=== PATIENT | female | born 1950 | race Caucasian/White ===

== ENCOUNTER 2016-04-22 21:24 | Observation (INO) | payer BC, MEDICARE ==
--- NOTE | ~2016-04-22 | HP ---
History And Physical [place] [id number] [facility] [place]. [address] NAME: CRISTOBAL PICKENS : 46 STATUS : ADM Ryan PAT#: [id number] AGE: 65 ADM/REG DATE : 04/22/16 MR#: [id number] REPORT SERV DATE: 04/23/16 DICTATED BY: OLE OSORIO DATE: 04/23/16 REPORT STATUS : Draft TRANSCRIBED BY: MODL DATE: 04/23/16 DATE OF ADMISSION: 04/22/2016 PRIMARY CARE PROVIDER: Zi Stewart M.D. INSPECTOR PUBLICATIONS: Jose Juan Spence M.D. LAST OFFICE VISIT: 09/14/2015 CHIEF COMPLAINT: Hypertension with headache. HISTORY OF PRESENT ILLNESS: This is a 65-year-old white female with a history of mild/nonobstructive coronary artery disease per catheterization in July 2014 and restrictive perimembranous VSD with aneurysmal formation per [facility] in August 2015. She also has history of obstructive sleep apnea for which she is on CPAP and suboptimally controlled hypertension. She has a history of atypical chest pain while lying flat that has been attributed to hiatal hernia. She does also have GERD. She tells me that she has been suffering from upper respiratory infection that started with sinusitis and nasal allergies and congestion. She reports she also had nausea that she often gets associated with these allergic symptoms. This started 1-1/2 weeks ago and she was not sure if it was allergies or an infection as she works in a school system. Her symptoms persisted and on , she went to her primary care provider. She reports she was given a steroid shot and clarithromycin 1 tablet p.o. twice per day. After this, she became jittery, dizzy, and her blood pressure became quite high after these medications. Please note, she also started taking an [id number]-[id number] decongestant, Farida-[place]. She reports sinus headache and worsening of chronic mild nausea as well after these medications. She called her primary care provider on Sunday who stopped the antibiotics. Again, she notes that she is quite concerned because her systolic blood pressure had increased up to 180s and she reports normally her blood pressure runs systolically 130s to 150s. She presented to the emergency room last night as she continued to have a high blood pressure, had a headache and felt jittery and nauseated. In the ER, when she was lying flat, she commented to staff that she had 3/10 chest pain. They decided to admit her to the Chest Pain Observation Unit. She reports adamantly that she did not come to the ER for chest pain and that she often has chest pain when she is lying flat and she says she has been told it is due to her history of hiatal hernia. I do see in the last office visit note that they comment about the atypical chest pain when lying down at night. I also see a note from [facility] in [facility] that does discuss her history of 4 cm hiatal hernia. She reports overnight that her nausea has actually resolved. She reports her headache has now resolved as well. She does still feel jittery and a little bit tired. She says she has not slept, however. She reports that she has not been compliant recently with CPAP given her nasal congestion. The patient tells me that she wishes to go home today; however, her daughter reports that she would encourage her mother to stay for stress test on Sunday if we felt it was necessary. The patient denies any chest pain other than chest pain yesterday evening while lying flat and otherwise sometimes having chest pain lying flat that she attributes to hiatal hernia. She denies any dyspnea on exertion, syncope or near-syncope. She denies any chest pain with History And Physical [address] [place]. [address] NAME: CRISTOBAL PICKENS : 46 STATUS : ADM Ryan PAT#: [id number] AGE: 65 ADM/REG DATE : 04/22/16 MR#: [id number] REPORT SERV DATE: 04/23/16 DICTATED BY: OLE OSORIO DATE: 04/23/16 REPORT STATUS : Draft TRANSCRIBED BY: MODEne DATE: 04/23/16 exertion. She denies any orthopnea or lower extremity edema. PAST MEDICAL HISTORY: 1. Atypical chest pain while lying down at night. 2. Mild coronary artery disease without severe stenosis per cath arteriogram on 07/08/2014 with ejection fraction 65%. Right dominant. LAD 35% proximally; circumflex 10% proximally; RCA 25% proximal and 10% distal. 3. Hypertension with suboptimal control. 4. Category 1 bilateral carotid artery disease per ultrasound of 01/21/2015. 5. Small/moderate perimembranous restrictive VSD with aneurysmal formation, no thrombus; TV restricted mobility, right ventricle upper limits of normal and pulmonary outflow tract with increased velocities, EF 55% to 60%. This is per [facility] 08/06/[address] Jenkins. 6. PACs on Holter. 7. Premature SVT complexes and first-degree AV block noted on EKG 07/08/2014. 8. Mild obstructive sleep apnea, normally compliant with CPAP but not fully compliant recently with nasal congestion. 9. Fibromyalgia. 10.Fatigue. 11.Chronic hormone replacement therapy. 12.No evidence of renal artery stenosis by ultrasound 12/25/2013. 13.Chronic headaches. 14.GERD. 15.Nasal allergies. 16.4 cm hiatal hernia. 17.Gastric erosion and hiatal hernia noted on EGD in August 2011 which was done after melena/GI bleed with Dr. Pascual. PAST SURGICAL HISTORY: 1. EGD with dilation. 2. Abdominal BSO and A and P repair. 3. Bladder sling. SOCIAL HISTORY: She denies any tobacco or alcohol use. She consumes 2 cups of caffeine daily. She works in school cafeteria. FAMILY HISTORY: Positive for brother with CABG x2, first under 60 years old; father, MO, age 64 (); sister, AVR; sister, bicuspid aortic valve and sister with CVA at the age of 50; sister, CAD and MO at the age of 52. REVIEW OF SYSTEMS: Last cath arteriogram, 07/08/2014, with mild nonobstructive CAD as previously noted. Last stress test, 10/24/2013, which was low risk with no ischemia with EF greater than 60%. Last transthoracic echo, 10/24/2013, EF 55%; aortic sclerosis with restrictive perimembranous VSD. Last transesophageal echocardiogram, 08/06/2015, please see past medical history. As above per HPI, all other systems reviewed and negative. History And Physical [address] [place] [address] NAME: CRISTOBAL PICKENS : 46 STATUS : ADM Ryan PAT#: [id number] AGE: 65 ADM/REG DATE : 04/22/16 MR#: [id number] REPORT SERV DATE: 04/23/16 DICTATED BY: OLE OSORIO DATE: 04/23/16 REPORT STATUS : Draft TRANSCRIBED BY: ESTELLA DATE: 04/23/16 ALLERGIES: 1. OXYCODONE, REACTION NERVOUS. 2. ASPIRIN, REACTION NERVOUS, THIS IS IN CONJUNCTION PERCODAN. HOME MEDICATIONS: List reviewed and is as follows: 1. Elavil 25 mg p.o. every day at bedtime. 2. Norvasc 2.5 mg p.o. at bedtime. 3. Nuvigil 150 mg p.o. every morning. 4. Ziac 5/6.25 mg tablet p.o. daily. 5. Hydrocodone/acetaminophen 10/300 mg p.o. q.4h p.r.n. 6. Lisinopril 40 mg p.o. at bedtime. 7. Nitroglycerin 0.4 mg sublingual q.5h minutes x3 p.r.n. 8. Omeprazole 40 mg p.o. daily. 9. Pravastatin 40 mg p.o. daily. 10.Ambien 10 mg p.o. every day at bedtime p.r.n. sleep. 11.Fluticasone 2 sprays each nostril daily. PHYSICAL EXAMINATION: VITAL SIGNS: Oxygen saturation 96% on room air; weight 72.12 kg; temperature 97.6; pulse 83; respiratory rate 16; blood pressure currently 165/77, highest blood pressure 186/79. GENERAL: Well developed, well nourished. In no apparent distress. HEENT: Head normocephalic. No xanthelasma. Sclera clear, anicteric. Moist mucous membranes without pallor. No lymphadenopathy. No deficits noted. NECK: Trachea midline. Supple. No thyromegaly, JVD, or bruits. RESPIRATORY: Unlabored respirations. Breath sounds with crackles noted to the bilateral bases, otherwise no wheezes or rhonchi, and upper are clear. CARDIOVASCULAR: Regular rate and rhythm. No murmur, rub, or gallop appreciated. No chest wall tenderness to palpation. ABDOMEN: Soft, nontender, and nondistended. Active bowel sounds auscultated x4 quadrants. No organomegaly and no masses. No aortic bruit. EXTREMITIES: DP/PT and radial pulses 2+ bilaterally. No clubbing, cyanosis, or edema. SKIN: Warm, dry, intact. No rash. Normal turgor. MUSCULOSKELETAL: Moves all extremities in bed without difficulty. NEURO/PSYCH: Alert and oriented x3 with no acute distress. Affect appropriate to current situation. LABORATORY DATA: BMP: Sodium 142, potassium 4.1, creatinine 0.85, glucose 104, calcium 9.3, magnesium 1.9. CBC: White blood cell count 8.3, hemoglobin 13.2, hematocrit 39, platelets 295. Troponin less than 0.[address] without contrast reveals no acute intracranial abnormality. Chest x-ray taken, this is a 2-view chest x-ray; it has not been formally read yet. My read is no acute processes. EKG is personally interpreted, normal sinus rhythm with mild changes that could be consistent with LVH; anteroseptal/anterolateral Q-waves are noted. There is no ischemia. Telemetry: Normal sinus rhythm with no events. ASSESSMENT AND PLAN: 1. Poorly controlled hypertension. This is in the setting of decongestants and IV steroids administered on for upper respiratory infection/nasal History And Physical [address] [address] NAME: CRISTOBAL PICKENS : 46 STATUS : ADM Ryan PAT#: [id number] AGE: 65 ADM/REG DATE : 04/22/16 MR#: [id number] REPORT SERV DATE: 04/23/16 DICTATED BY: OLE OSORIO DATE: 04/23/16 REPORT STATUS : Draft TRANSCRIBED BY: ESTELLA DATE: 04/23/16 allergies/sinusitis symptoms per patient report by her PCP. She reports her baseline systolic blood pressure is already elevated at home, 130s to 150s. She reports since steroids and decongestants her systolic blood pressures have been in the 170s to 180s range at home and that she has had a funny feeling in her head, sinus headache, and jittery. She denies any fever or chills. There is no leukocytosis. There is no dyspnea. Chest x-ray is clear. There is no chest pain with exertion. I advised the patient to avoid all decongestants as this raises blood pressure. I will increase her Norvasc at this time. She is to check her blood pressure daily, record, and bring in to primary care provider's office in 1 to 2 weeks. She is also to consume a 2 g sodium diet. While she is here, I will provide hydralazine if needed for systolic blood pressure greater than 170. After giving dosage of Norvasc this morning, I will need to hold it for a possible stress test tomorrow morning. We will also hold her bisoprolol/HCTZ for stress test and resume it post stress test. Otherwise, I defer hypertension management to primary care provider. 2. Sinus headache. This has resolved. Head CT was performed and this revealed no acute processes. The patient reports she does chronically get sinus headaches and headaches. Again, defer to primary care provider. 3. Atypical chest pain. The patient reports that she chronically feels chest tightness when she lays down at night. She reports that she did not come to the ER for chest pain but did note in the ER chest pain while she was lying flat. She does have a history of GERD and hiatal hernia. Question whether the chest pain is secondary to that versus a cardiac etiology. Two negative troponins rule the patient out for acute coronary syndrome. EKG revealed no ischemia but did show possible anteroseptal infarct. This was compared to prior EKG, 08/06/2015, in which she did have anterior Q- waves. Cardiac risk factors are significant and include hypertension, hyperlipidemia, mild CAD, age, family history of CAD. I did discuss with the patient and her family that I would consider nuclear stress test on Sunday to further risk stratify this chest pain. However, the patient wishes to be discharged to home today. I will further discuss with [place] [facility] tester electronic scale for CPU, Dr. Mcfarland. Regardless, she will need to follow up with Dr. Spence in one month and PCP in 1 to 2 weeks. 4. Upper respiratory infection. There is no leukocytosis. No fever and no chills. Suspect this is either a viral etiology versus allergies. I discussed with her resuming her nasal spray. She may start [id number] Claritin or Zyrtec 1 tablet daily and follow up with primary care provider in one week. She does not have any dyspnea and her headache has resolved at this time. Her only symptom at this point in time is nasal congestion. 5. History of nonobstructive/mild CAD. We will continue statin, BARBARA inhibitor, and beta yannick. I will add aspirin 81 mg p.o. daily. 6. Mild/moderate perimembranous VSD with aneurysmal formation. This is noted. 7. Obstructive sleep apnea, CPAP. I reiterated the importance of compliance in improving blood pressure control. She reports she has been less compliant with nasal congestion recently. Again, I told her to restart her nasal spray ordered by her sleep specialist along with trialing Claritin or Zyrtec. Again, follow up with PCP. 8. GERD/hiatal hernia. We will continue the patient's PPI. Follow up with primary care provider. 9. Further recommendations forthcoming per rounding tester electronic scale for CPU, Dr. Mcfarland. History And Physical [address] [address] NAME: CRISTOBAL PICKENS : 46 STATUS : ADM Ryan PAT#: [id number] AGE: 65 ADM/REG DATE : 04/22/16 MR#: [id number] REPORT SERV DATE: 04/23/16 DICTATED BY: OLE OSORIO DATE: 04/23/16 REPORT STATUS : Draft TRANSCRIBED BY: ESTELLA DATE: 04/23/16 NEREIDA/ESTELLA Ole Osorio NP / [id number] CC: Rashaad Mccauley M.D. Brian Negus, M.D.
[~2016-04-22 21:24] MED LIST: ALEVE220 MG PO; AMB10 PO; AMIT25 PO; ASAB PO; COQ-10200 MG PO; ENDOCET1 TAB PO; ESTRACE1 MG PO; ESTRADIOL2 MG OR; ESTRADIOL2 MG PO; FLOVENT DISK50 MCG INH; HYDROCODONE PO; IBU800 PO; LISINOPRIL40 MG PO; LORTAB10 PO; MELATONIN1 M1 PO; NITROSTAT0.4 MG SL; NORCO1 TAB PO; NORV25 PO; PRAVACHOL40 MG PO; PRILO PO; PRILOSEC40 MG PO; PROBIOTIC PO; VITAMIN B-12 INJ IM; ZESTORETIC PO; ZIAC5 PO; ZOFRAN4 PO
[2016-04-22 23:52] LABS: BASOPHILS 0.2 %; BASOPHILS ABSOLUTE 0.02 10/3/uL (0.0-0.16); EOSINOPHILS 0.2 %; EOSINOPHILS ABSOLUTE 0.02 10/3/uL (0.0-0.53); ER CBC TAT 0 Hrs 08 Mins; HEMOGLOBIN 13.2 g/dL (12.0-16.0); IMMATURE GRANULOCYTES 0.2 %; IMMATURE GRANULOCYTES ABSOLUTE 0.02 10/3/uL (0.0-0.11); LYMPHOCYTES 29.9 %; LYMPHOCYTES ABSOLUTE 2.48 10/3/uL (0.67-4.30); MEAN CORPUS HGB CONC 33.8 g/dL (32.0-36.0); MEAN CORPUSCULAR HEMOGLOB 30.9 pg (26.0-34.0); MEAN CORPUSCULAR VOLUME 91.3 fL (80-100); MEAN PLATELET VOLUME 8.6 fL (9.2-13.0); MONOCYTES ABSOLUTE 0.75 10/3/uL (0.21-1.20); NEUTROPHILS 60.5 %; NEUTROPHILS ABSOLUTE 5.01 10/3/uL (2.02-8.40); RBC DISTRIBUTION WIDTH 13.5 % (12.0-16.0); RED CELL COUNT 4.27 10/6/uL (4.0-5.6); WHITE BLOOD CELLS 8.3 10/3/uL (4.5-10.5)
[2016-04-22 23:53] LABS: MANUAL DIFF NO %; PLATELET COUNT 295 10/3/uL (150-400)
[2016-04-23 00:02] LABS: PARTIAL THROMBO TIME 32.6 SEC (22.5-37.2); PROTIME (NOT ORD) 13.3 SEC (12.0-14.5)
[2016-04-23 00:15] LABS: BUN (BLOOD UREA NITROGEN) 15 MG/DL (6-23); CALCIUM, SERUM 9.3 MG/DL (8.5-10.4); CHLORIDE, SERUM 104 MMOL/L (96-112); CO2 (CARBON DIOXIDE) 29 MMOL/L (24-34); CREATININE 0.85 MG/DL (0.55-1.02); GFR AFRICAN AMERICAN 82 ML/MIN (>=60); GFR NON AFRICAN AMERICAN 71 ML/MIN (>=60); GLUCOSE, SERUM 104 MG/DL (60-99); POTASSIUM, SERUM 4.1 MMOL/L (3.5-5.3); SODIUM, SERUM 142 MMOL/L (135-148); TROPONIN I <0.02 NG/ML (<0.05)
[2016-04-23 00:16] LABS: CHEST PAIN PROFILE TAT 0 Hrs 31 Mins
[2016-04-23] MEDS ORDERED: AMIT25 PO (03:06)
[2016-04-23] MEDS ORDERED: NORV25 PO (03:07)
[2016-04-23] MEDS ORDERED: ZIAC5 PO (03:07)
[2016-04-23] MEDS ORDERED: XODOL 10-300 T1 EACH PO (03:08)
[2016-04-23] MEDS ORDERED: NITROSTAT0.4 MG SL (03:09)
[2016-04-23] MEDS ORDERED: LISINOPRIL40 MG PO (03:09)
[2016-04-23] MEDS ORDERED: PRAVACHOL40 MG PO (03:10)
[2016-04-23] MEDS ORDERED: PRILOSEC40 MG PO (03:10)
[2016-04-23] MEDS ORDERED: AMB10 PO (03:11)
[2016-04-23] MEDS ORDERED: NUVIGIL150 MG PO (03:11)
[2016-04-23] MEDS ORDERED: NORV5 PO (10:48)
[2016-04-23] MEDS ORDERED: FLONASE NAS (10:50)
[2016-04-23] MEDS ORDERED: ASAB PO (10:51)
== END 2016-04-23 11:26 | disposition home or self-care (01) ==
LOC: ER 21:24 → CDU1 23:59 → CDU2 04-23 05:10 → CDU1 04-23 10:56
PROVIDERS: Specialist
DX: I10 Essential (primary) hypertension (principal); R51 Headache; R07.89 Other chest pain; J06.9 Acute upper respiratory infection, unspecified; I25.10 Atherosclerotic heart disease of native coronary artery without angina pectoris; G47.33 Obstructive sleep apnea (adult) (pediatric); K44.9 Diaphragmatic hernia without obstruction or gangrene; M79.7 Fibromyalgia; M19.90 Unspecified osteoarthritis, unspecified site; E04.9 Nontoxic goiter, unspecified; F41.9 Anxiety disorder, unspecified; K21.9 Gastro-esophageal reflux disease without esophagitis; Z88.5 Allergy status to narcotic agent; Z88.8 Allergy status to other drugs, medicaments and biological substances; Z79.899 Other long term (current) drug therapy; Z79.891 Long term (current) use of opiate analgesic; Z98.51 Tubal ligation status; Z90.711 Acquired absence of uterus with remaining cervical stump; Z98.890 Other specified postprocedural states
CPT/HCPCS: 70450; 71020; 80048; 83735; 84484; 85025; 85610; 85730; 93005; 99285; A9270-GY; G0378